=== PATIENT | female | born 1990 | race Caucasian/White ===

== ENCOUNTER 2024-05-30 06:52 | Day surgery (SDC) | payer OTHER ==
[2024-05-30] VITALS (208 sets, daily range): BP systolic 84–131; BP diastolic 46–87
[~2024-05-30] VITALS: Ht 172.7 cm; Wt 75.0 kg
[~2024-05-30 06:52] MED LIST: SODIUM CHLORIDE 0.9% 1,000 ML IV PRN
--- NOTE | 2024-05-30 07:00 | NUR ---
Patient arrived to the ANR suite, identification and demographics confirmed. Patient to room 9, AAO, ambulatory, vitals obtained, ID/allergy/fall bands placed, changed into hospital gown, MELONIE hose, and non-slip socks. Procedure and timeline explained for treatment and discharge. All questions answered and the patient presents no concerns at this time.
[2024-05-30] MEDS ORDERED: FAMOTIDINE 20 MG/TAB PO PRN (07:30)
[2024-05-30] MEDS ORDERED: diazePAM 5 MG/TAB PO PRN ×2 (07:30→08:30)
[2024-05-30] MEDS ORDERED: cloNIDine HCL 0.1 MG/TAB PO PRN (07:30)
[2024-05-30] MEDS ORDERED: CYANOCOBALAMIN 500 MCG/TAB ( B12) PO PRN (07:30)
[2024-05-30] MEDS ORDERED: PANTOPRAZOLE SODIUM Sesquihydr 40 MG/TAB PO PRN (07:30)
[2024-05-30] MEDS ORDERED: SCOPOLAMINE 1.5 MG DIS TD PRN (07:30)
[2024-05-30] MEDS ORDERED: ALBUTEROL SULFATE 2.5 MG VIAL IN PRN (07:30)
[2024-05-30] MEDS ORDERED: LACTATED RINGER'S 1,000 ML IV PRN ×2 (07:30→09:40)
--- NOTE | 2024-05-30 07:31 | NUR ---
Dr. Yi telephoned with patient intake information including usage, dose, last dose/time taken and initial vital signs. Patient history and allergies reviewed with MD. Orders received for 10 mg PO Valium and 0.2 mg PO Clonidine now. Will reassess per protocol in 1.5 hours and update MD with assessment and vitals.
[2024-05-30] MEDS ORDERED: ASCORBIC ACID 4,000 MG in SODIUM CHLORIDE 0.9% 1,000 ML IV SCH (08:00)
[2024-05-30] MEDS ORDERED: DEXMEDETOMIDINE HCL IN SODIUM 100 ML IV SCH (08:40)
[2024-05-30 08:58] LABS: BASO% 0.3 % (0-3); EOS% 1.5 % (0-8); HEMATOCRIT 34.3 % (37.0-47.0); HEMOGLOBIN 11.3 g/dl (12.0-16.0); LYMPH% 58.4 % (15-41); MEAN CELL VOLUME 94.8 fL CALC (80.0-100.0); MEAN CORPUSCULAR HGB 31.2 pG CALC (26.0-32.0); MEAN CORPUSCULAR HGB CONC 32.9 g/dL CAL (32.0-36.0); MONO% 8.4 % (2-13); NEUT# 1.05 thou/uL (2.00-7.15); NEUT% 31.4 % (42-76); RED BLOOD COUNT 3.62 mill/uL (4.20-5.60); RED CELL DISTRI WIDTH 12.8 % (11.5-15.5)
--- NOTE | 2024-05-30 09:07 | NUR ---
Patient resting comfortably in bed. Easily aroused, maintains focus, and drifts back to sleep. No signs of active withdrawal or distress noted at this time. Continuous SPO2, rhythm, and respiratory monitoring initiated. IVF @ 250 mL/HR, room air, VSS.
[2024-05-30 09:28] LABS: ALBUMIN 3.4 g/dL (3.2-5.0); BILIRUBIN, TOTAL 0.3 mg/dL (0.02-1.3); CREATININE 0.7 mg/dL (0.5-1.0); POTASSIUM 4.1 mmol/l (3.5-5.1); TOTAL PROTEIN 6.1 g/dL (6.3-8.2)
[2024-05-30] MEDS ORDERED: DiphenhydrAMINE HCL 50 MG/ML SDV IV PRN (09:40)
[2024-05-30] MEDS ORDERED: LIDOCAINE HCL 1% (10MG/ML) 100 MG/10 ML MDV IV PRN (09:40)
[2024-05-30] MEDS ORDERED: SODIUM CHLORIDE 0.9% 1,000 ML IV PRN ×2 (09:40→14:20)
[2024-05-30] MEDS ORDERED: LIDOCAINE HCL 1% (10MG/ML) 100 MG/10 ML MDV VT PRN ×2 (09:40)
[2024-05-30] MEDS ORDERED: PROPOFOL 100 ML IV PRN (09:40)
[2024-05-30] MEDS ORDERED: ONDANSETRON HCl 4 MG/2 ML SDV IV PRN ×3 (09:40→19:00)
[2024-05-30] MEDS ORDERED: PROPOFOL 10 MG/ML 100ML VIAL IV PRN (09:40)
[2024-05-30] MEDS ORDERED: OCTREOTIDE ACETATE 100 MCG/VIAL SDV SC PRN (09:40)
[2024-05-30] MEDS ORDERED: ROCURONIUM BROMIDE 10 MG/ML 5 ML VIAL IV PRN (09:40)
[2024-05-30] MEDS ORDERED: diazePAM 5 MG/TAB VT PRN (09:40)
[2024-05-30] MEDS ORDERED: NALTREXONE HCL 50 MG/TAB VT PRN (09:40)
[2024-05-30] MEDS ORDERED: POTASSIUM CHLORIDE 20 MEQ/100 ML BAG IV PRN (09:40)
[2024-05-30] MEDS ORDERED: SUCCINYLCHOLINE CHLORIDE 20 MG/ML 10ML VIAL IV PRN (09:40)
[2024-05-30] MEDS ORDERED: cloNIDine HCL 0.1 MG/TAB VT PRN (09:40)
[2024-05-30] MEDS ORDERED: THIAMINE HCL 100 MG/ML 2ML VIAL IV PRN (09:40)
[2024-05-30] MEDS ORDERED: MAGNESIUM SULFATE HEPTAHYDRATE 100 ML IV PRN (09:40)
[2024-05-30] MEDS ORDERED: MIDAZOLAM HCL 2 MG/2 ML VIAL IV PRN ×3 (09:40→14:25)
[2024-05-30] MEDS ORDERED: cloNIDine HYDROCHLORIDE 100 MCG/ML 10 ML INJ IV PRN (09:40)
[2024-05-30] MEDS ORDERED: STERILE WATER FOR IRRIGATION 1,000 ML BTL IR PRN (09:40)
--- NOTE | 2024-05-30 11:15 | NUR ---
DR. LAMBERT AT BEDSIDE TO ASSESS PT AND DISCUSS POC AND PROCEDURE.
--- NOTE | 2024-05-30 11:46 | NUR ---
Induction Note Patient to ANR procedure room. Time out performed at 1120. Patient placed on monitors, Yessi hugger, bilateral wrist restraints applied for ET tube protection. Versed 5mg given IV push at 1121 Tourniquet applied to right arm Lidocaine 100mg given at 1141 IV push followed by Rocoronium 10mg at 1142 IV push and held for 90 seconds. Propofol bolus of 110mg given at 1144 IV push. Succinylcholine 80mg given IV push at 1145. Smooth intubation with 7.5 ETT. Positive CO2. Positive Auscultation for air exchange. ET tube secured with tape 22 @ the lip. Patient placed on ventilator for spontaneous ventilation. Placed on Propofol IV drip at 1146. OG inserted. Positive air on auscultation. Positive gastric content. Stomach washed at this time.
--- NOTE | 2024-05-30 12:00 | NUR ---
OG close note Stomach washed at this time. Naltrexone 50 mg via OG tube. OG will be clamped for 45 minutes.
--- NOTE | 2024-05-30 12:45 | NUR ---
OG open note OG open at this time. Gastric content draining into drainage bag. OG to drain for 45 minutes. Propofol will be titrated down based on patient.
--- NOTE | 2024-05-30 13:30 | NUR ---
OG close note Stomach washed at this time. Naltrexone 50 mg with Clonidine 0.2 mg via OG tube. OG will be clamped for 45 minutes.
[2024-05-30] MEDS ORDERED: clonazePAM 1 MG/TAB PO PRN (14:25)
--- NOTE | 2024-05-30 15:00 | NUR ---
No OG close at this time. Patient minimally reacting to treatment. Vitals, total Naltrexone & Clonidine, current Propofol infusion rate, treatment duration, and patient assessment discussed with Dr. Yi. No orders for medication administration at this time. OG will remain open to allow time for patient to continue reacting to therapy.
[2024-05-30] MEDS ORDERED: KLONOPIN2 MG PO (16:06)
[2024-05-30] MEDS ORDERED: CLONIDINE0.1 MG PO (16:06)
[2024-05-30] MEDS ORDERED: NALTREXONE50 MG PO (16:06)
--- NOTE | 2024-05-30 16:55 | NUR ---
OG close note Stomach washed at this time. Naltrexone 12.5 mg, Valium 10mg, and Clonidine 0.1 mg via OG tube. OG will be clamped for 20-30 minutes for closing dose.
--- NOTE | 2024-05-30 17:26 | NUR ---
Extubation note Closing medications given Benadryl 50mg IV push, Decadron 10mg IV push,Magnesium 4 grams IV, Zofran 8mg IV push, Octreotide 100mcg SC. Stomach washed out prior to extubation. Suctioned gastric content. OG removed. Patient extubated. Propofol Discontinued. Wrist restraints removed. Yessi hugger Removed. See ANR Moderate sedate recovery record for further notes and assessment.
--- NOTE | 2024-05-30 17:37 | NUR ---
ALL PT PERSONAL BELONGINGS STORED IN LOCKER BLUE #2 IN ANR DEPARTMENT.
--- NOTE | 2024-05-30 17:47 | NUR ---
SHEET [employer] WORKER ATTEMPTED TO CALL PT MOTHER TO PROVIDE UPDATE. NO ANSWER MESSAGE LEFT AT THIS TIME. WILL ATTEMPT TO CALL AGAIN AT LATER TIME.
--- NOTE | 2024-05-30 17:50 | NUR ---
PT MOTHER RETURNED PHONE CALL. UPDATE PROVIDED AT THIS TIME. ALL QUESTIONS AND CONCERNS ADDRESSED.
--- NOTE | 2024-05-30 18:01 | NUR ---
Patient to room 288 in no acute distress. Transfer of care to Muna RN, bedside report provided. 2L NC placed per orders, IVF to continue at 100ml/hr. VSS. Patient resting comfortably, no adventitious breath sounds appreciated. Bed alarm set. See chart/EMAR for procedural details and assessments. Handoff of care at the time of this note.
[2024-05-30] MEDS ORDERED: KETOROLAC TROMETHAMINE 30 MG/ML SDV IV PRN (19:00)
[2024-05-30] MEDS ORDERED: ACETAMINOPHEN 1,000 MG/100 ML VIAL IV PRN (19:00)
[2024-05-30] MEDS ORDERED: PROMETHAZINE HCL 25 MG in SODIUM CHLORIDE 0.9% 50 ML IV PRN (19:00)
[2024-05-30] MEDS ORDERED: ACETAMINOPHEN 500 MG TAB PO PRN (19:00)
[2024-05-30] MEDS ORDERED: HALOPERIDOL LACTATE 5 MG/ML SDV IV PRN (19:00)
[2024-05-30] MEDS ORDERED: PROMETHAZINE HCL 12.5 MG in SODIUM CHLORIDE 0.9% 50 ML IV PRN (19:00)
--- NOTE | 2024-05-30 19:55 | NUR ---
RECEIVED REPORT FROM ANR NURSE. PT NOTED TOSSING AND TURNING IN BED, PRESENTS VERY RESTLESS, ANXIOUS AND JAKUB. PT YELLING AND HOLLERING OUT, CONTINUES TO HOLLER FOR "LIANE" AND C/O "FEELING LIKE SHIT" "I NEED PUT OUT" AND EXPRESSING "I CAN'T DO THIS, I WAS TOLD I WOULD BE PUT TO SLEEP" WHEN BANNER PAINTER OR STAFF TRY TO CONSOLE PT AND CALM PT DOWN IT IS INEFFECTIVE. NO COMFORT MEASURES OR THERAPUTIC COMMINUCAITON HAVE BEEN EFFECTIVE. PT HAS ALREADY RECEIVED PRN MED FOR JAKUB ON PRIOR SHIFT. WAS CALLED AND INFORMED OF PT STATUS, BEHAVIOR AND COMPLAINTS. TORB FOR MEDICATIONS THAT WERE FAXED TO PHARMACY AND AWAITING VERIFICATION. INFORMED PT ON MED ORDERS AND POC. ENCOURAGED TO TRY RELAXING UNTIL MEDS CAN BE ADMINISTERED. VSS. BED ALARM ON AND SAFETY PRECAUTIONS IN PLACE.
[2024-05-30] MEDS ORDERED: diazePAM 10 MG/2 ML VIAL IV SCH (20:15)
[2024-05-30] MEDS ORDERED: diazePAM 5 MG/TAB PO SCH (20:15)
--- NOTE | 2024-05-30 20:30 | NUR ---
ADMINSITERED MEDS PER EMAR FOR PAIN, JAKUB AND ANXIETY. COMFORT MEASURES APPLIED AND THERAPUTIC COMMUNICATION TO HELP RELAX PT. ENCOURAGED PT TO LET MEDICAITONS TAKE EFFECT, PROMOTED REST AND SLEEP. PT LAYING IN BED SUPINE AT THIS TIME. NO S/S OF DISTRESS. BED ALARM ON AND SAFETY PRECAUTIONS IN PLACE.
[2024-05-30] MEDS ORDERED: PATIENT' OWN MED CONTROLLED 1 EA DOSE IV PRN (21:00)
--- NOTE | 2024-05-30 21:30 | NUR ---
PT IS LAYING IN BED ON RT SIDE, SLEEPING. HAS FINALY CALMED DOWN AND BEGAN TO REST. IVF RUNNING PER EMAR. NO S/S OF DISTRESS. BED ALARM ON AND SAFETY PRECAUTIONS IN PLACE.
[2024-05-30] MEDS ORDERED: cloNIDine HCL 0.1 MG/TAB PO SCH (23:00)
--- NOTE | 2024-05-31 | NUR ---
ADMINISTERED SCHEDULED MEDS PER EMAR. PT TOELRATED WELL. PT AROUSABLE TO SPEECH, A/OX2 TO SELF AND PLACE. PT EXPRESSES "FEELING MUCH BETTER" ENCOURAGED TO STILL REST AND SLEEP. PT DENIES ANY N/V/P AT THIS TIME. VSS. NO S/S OF DISTRESS. BED ALARM ON AND SAFETY PRECAUTIONS IN PLACE.
[2024-05-31 03:31] VITALS: BP 102/52
[2024-05-31] MEDS ORDERED: clonazePAM 1 MG/TAB PO PRN ×2 (04:00→08:00)
[2024-05-31] MEDS ORDERED: cloNIDine HCL 0.1 MG/TAB PO PRN (04:00)
[2024-05-31] MEDS ORDERED: NALTREXONE HCL 50 MG/TAB PO SCH (04:00)
--- NOTE | 2024-05-31 04:00 | NUR ---
ADMINSITERED SCHEDULED MEDS PER EMAR ALONG WITH PRN MED FOR JAKUB. PT PRESENTING ANXIOUS AND JAKUB, STATING "SANDI NEVER WITHDRAWN LIKE THIS BEFORE" WHEN ASK PT TO EXPLAIN SYMTPOMS THEY STATE "I CAN'T EVEN PUT IT IN WORDS I JUST FEEL LIKE CRAP" EDUCATED PT ON POST OP, RECOVERY AND NORMAL S/S POST PROCEDURE. EDUCATED ON MEDICATIONS ADMINISTERED TO ASSIST WITH JAKUB, AXI, AND WITHDRAW SYMPTOMS. PT STATING "I JUST WANT TO BE PUT TO SLEEP" ENCOURAGED PT TO REST AND RELAX, MEDICATIONS ADMINSTIERED WILL ASSIST WITH SLEEP. PT LAYING IN BED ON RT SIDE WITH EYES CLOSED. VSS. NO S/S OF DISTRESS. PT DENIES ANY N/V/P AT THIS TIME. BED ALARM ON AND SAFETY PRECAUTIONS IN PLACE. IVF RUNNING PER EMAR.
[2024-05-31 07:25] LABS: HEMATOCRIT 34.3 % (37.0-47.0); HEMOGLOBIN 11.4 g/dl (12.0-16.0); IMMATURE GRANULOCYTES 0.2 % (0.0-5.0); MEAN CORPUSCULAR HGB 30.9 pG CALC (26.0-32.0); MEAN CORPUSCULAR HGB CONC 33.2 g/dL CAL (32.0-36.0); MONO% 4.4 % (2-13); NEUT# 3.43 thou/uL (2.00-7.15); NEUT% 75.4 % (42-76); RED BLOOD COUNT 3.69 mill/uL (4.20-5.60); RED CELL DISTRI WIDTH 12.6 % (11.5-15.5)
[2024-05-31 07:46] LABS: ALBUMIN 3.4 g/dL (3.2-5.0); BILIRUBIN, TOTAL 0.4 mg/dL (0.02-1.3); CREATININE 0.5 mg/dL (0.5-1.0); MAGNESIUM 2.1 mg/dL (1.6-2.3)
[2024-05-31] MEDS ORDERED: ACETAMINOPHEN 325 MG/TAB PO SCH (08:00)
[2024-05-31] MEDS ORDERED: cloNIDine HCL 0.1 MG/TAB PO SCH (08:00)
[2024-05-31] MEDS ORDERED: PANTOPRAZOLE SODIUM Sesquihydr 40 MG/TAB PO SCH (08:00)
--- NOTE | 2024-05-31 08:34 | NUR ---
patient a/o x2; room air; breathing unlabored and even; denied any pain; denied any n/d/v at this time, just staes she feels bad, educated on how she would feel and every couple hours she will feel a little better; tolerated her medications; iv site clean and intact running with ns @100; no complaints at tihs time; no s.s of distress or withdrals at this time; status of patinet and labs called to provider; call light within reach; bed in lowest postion;saftey measures inplace
[2024-05-31] MEDS ORDERED: ACETAMINOPHEN 500 MG TAB PO PRN (09:00)
[2024-05-31] MEDS ORDERED: Cholecalciferol 2,000 UNIT/TAB PO PRN (09:00)
[2024-05-31] MEDS ORDERED: MAGNESIUM OXIDE 400 MG/TAB PO PRN (09:00)
[2024-05-31] MEDS ORDERED: cloNIDine HCL 0.1 MG/TAB PO ONE (09:30)
[2024-05-31 09:54] VITALS: BP 124/70
--- NOTE | 2024-05-31 12:01 | NUR ---
PATIENT ASSITED TO BATHROOM, ROOM AIR; BREATHING AT THIS TIME. PATIENT ATTEMPTED SOME BITES OF LUNCH; CALL LIGHT ON BED; DENIED ANY PAIN; DENIED ANY N/D/V AT THIS TIME; IV SITE CLEAN AND INTACT SALINE LOCKED;
--- NOTE | 2024-05-31 13:23 | NUR ---
PATIENT IN SHOWER AT THIS TIME
--- NOTE | 2024-05-31 15:33 | NUR ---
AMBULATED DOWN HALLWAY WITH WRITTER
--- NOTE | 2024-05-31 16:49 | NUR ---
IV site discontinued, cath intact. No edema , no redness, voices no discomfort. Discharge instructions given. Patient verbalizes understanding of same. Discharged in stable condition via Ambulatory to Home with family. All belongings sent with pt.
[2024-05-31] MEDS ORDERED: diazePAM 5 MG/TAB PO SCH (20:00)
== END 2024-05-31 16:45 | disposition home or self-care (01) | DRG 897 ==
LOC: EDBD 06:52 → MS2 06:52 → ANR 06:52 → MS2 06:53 → ANR 08:00
PROVIDERS: ATTEND Anesthesiology
DX: F11.20 Opioid dependence, uncomplicated (principal)
CPT/HCPCS: J1100; J1200; J2354; J2405; J2704; J3360; J3411; J3475; J3480; J3490

== ENCOUNTER 2024-06-01 20:30 | Observation (INO) | payer OTHER ==
[~2024-06-01 20:30] MED LIST changes: +CLONIDINE0.1 MG PO; +KLONOPIN2 MG PO; +NALTREXONE50 MG PO; -SODIUM CHLORIDE 0.9% 1,000 ML IV PRN
[2024-06-01] MEDS ORDERED: KETOROLAC TROMETHAMINE 30 MG/ML SDV IV PRN (21:45)
[2024-06-01] MEDS ORDERED: SODIUM CHLORIDE 0.9% 1,000 ML IV PRN (21:45)
[2024-06-01] MEDS ORDERED: ONDANSETRON HCl 4 MG/2 ML SDV IV PRN (21:45)
[2024-06-01] MEDS ORDERED: NICOTINE TRANSDERMAL 21 MG/PATCH TD SCH (22:00)
[2024-06-01 22:20] LABS: BASO% 0.3 % (0-3); EOS% 0.2 % (0-8); HEMATOCRIT 38.9 % (37.0-47.0); HEMOGLOBIN 13.3 g/dl (12.0-16.0); IMMATURE GRANULOCYTES 0.3 % (0.0-5.0); LYMPH% 21.1 % (15-41); MEAN CELL VOLUME 90.3 fL CALC (80.0-100.0); MEAN CORPUSCULAR HGB 30.9 pG CALC (26.0-32.0); MEAN CORPUSCULAR HGB CONC 34.2 g/dL CAL (32.0-36.0); MONO% 3.4 % (2-13); NEUT# 4.67 thou/uL (2.00-7.15); NEUT% 74.7 % (42-76); RED BLOOD COUNT 4.31 mill/uL (4.20-5.60); RED CELL DISTRI WIDTH 12.4 % (11.5-15.5)
[2024-06-01] MEDS ORDERED: diazePAM 5 MG/TAB PO SCH (22:32)
[2024-06-01] MEDS ORDERED: clonazePAM 1 MG/TAB PO PRN (22:35)
[2024-06-01] MEDS ORDERED: LACTATED RINGER'S 1,000 ML IV PRN (22:35)
[2024-06-01 22:37] LABS: CREATININE 0.6 mg/dL (0.5-1.0); MAGNESIUM 1.8 mg/dL (1.6-2.3); POTASSIUM 3.5 mmol/l (3.5-5.1)
[2024-06-01 22:40] LABS: ALBUMIN 4.1 g/dL (3.2-5.0); BILIRUBIN, TOTAL 0.6 mg/dL (0.02-1.3)
[2024-06-01] MEDS ORDERED: BISMUTH SUBSALICYLATE 262 MG CHW PO PRN (22:40)
[2024-06-01 23:10] VITALS: BP 112/55
[2024-06-01] MEDS ORDERED: MAGNESIUM OXIDE 400 MG/TAB PO SCH (23:27)
[2024-06-01] MEDS ORDERED: POTASSIUM CHLORIDE 20 MEQ/TAB PO SCH (23:27)
[2024-06-02 04:05] VITALS: BP 104/64
[2024-06-02 06:58] VITALS: BP 105/65
[2024-06-02] MEDS ORDERED: NALTREXONE HCL 50 MG/TAB PO SCH (09:00)
[2024-06-02 09:24] LABS: BASO% 0.4 % (0-3); HEMATOCRIT 36.7 % (37.0-47.0); HEMOGLOBIN 12.2 g/dl (12.0-16.0); IMMATURE GRANULOCYTES 0.2 % (0.0-5.0); LYMPH% 49.5 % (15-41); MEAN CELL VOLUME 93.4 fL CALC (80.0-100.0); MEAN CORPUSCULAR HGB CONC 33.2 g/dL CAL (32.0-36.0); MONO% 7.1 % (2-13); NEUT# 2.17 thou/uL (2.00-7.15); NEUT% 42.8 % (42-76); RED BLOOD COUNT 3.93 mill/uL (4.20-5.60); RED CELL DISTRI WIDTH 12.5 % (11.5-15.5)
[2024-06-02 09:30] LABS: ALBUMIN 3.5 g/dL (3.2-5.0); BILIRUBIN, TOTAL 0.6 mg/dL (0.02-1.3); CREATININE 0.6 mg/dL (0.5-1.0); POTASSIUM 3.7 mmol/l (3.5-5.1); TOTAL PROTEIN 6.3 g/dL (6.3-8.2)
[2024-06-02] MEDS ORDERED: SODIUM CHLORIDE 0.9% 1,000 ML IV PRN (10:40)
[2024-06-02] MEDS ORDERED: POTASSIUM CHLORIDE 20 MEQ/TAB PO SCH ×2 (11:00→14:00)
[2024-06-02] MEDS ORDERED: POTASSIUM CHLORIDE 20MEQ 100 ML IV SCH (12:00)
[2024-06-02] MEDS ORDERED: PATIENT' OWN MED CONTROLLED 1 EA DOSE IV SCH (13:30)
== END 2024-06-02 17:41 | disposition left against medical advice (07) | DRG 641 ==
LOC: MS2 20:30
PROVIDERS: ADMIT Anesthesiology; ATTEND Anesthesiology
DX: E86.0 Dehydration (principal); Z53.29 Procedure and treatment not carried out because of patient's decision for other reasons
CPT/HCPCS: J2405; J3480